=== PATIENT | male | born 1985 | race Two or more races ===

== ENCOUNTER 2017-05-24 13:13 | Observation (INO) | payer MEDICAID, OTHER ==
[~2017-05-24] VITALS: Ht 180.3 cm; Wt 73.7 kg
[2017-05-24 14:00] LABS: Urine Bilirubin Negative (Negative); Urine Blood Negative /uL (Negative); Urine Color Yellow (Yellow); Urine Glucose Normal (Normal); Urine Ketone Negative (Negative); Urine Mucus FEW (None Seen); Urine Nitrite Negative (Negative); Urine RBC <1 /hpf (0 - 3); Urine Urobilinogen Normal (Negative)
[2017-05-24 14:02] LABS: Basophils # (auto) 0 uL; Basophils % (auto) 0.8 % (0.0-2.0); Eosinophils # (auto) 0.2 uL; Eosinophils % (auto) 4.3 % (0.0-7.0); Hematocrit 45.7 % (41.0-53.0); Hemoglobin 15.6 g/dL (13.5-17.5); Lymphocytes # (auto) 2.1 uL; Lymphocytes % (auto) 36.2 % (10.0-50.0); Mean Corpuscular Hemoglobin 32.3 pg (28.0-32.0); Mean Corpuscular Hgb Conc. 34.2 g/dL (32.0-36.0); Mean Corpuscular Volume 94.5 fL (80.0-100.0); Mean Platelet Volume 8.5 fL (6.9-10.8); Monocytes # (auto) 0.7 uL; Neutrophils # (auto) 2.6 uL; Neutrophils % (auto) 45.7 % (37.0-80.0); Nucleated Red Blood Cells % 0.1 %; Platelet Count (auto) 205 10^3/uL (140-450); Red Cell Distribution Width 14.3 % (11.8-14.3); White Blood Cell 5.8 10^3/uL (4.4-10.8)
[2017-05-24 14:28] LABS: Albumin 4.1 g/dL (3.4-5.0); Alkaline Phosphatase 105 U/L (45-117); Anion Gap 7 (5-15); Aspartate Aminotransferase 18 U/L (15-37); BUN/Creatinine Ratio 21.8; Bilirubin, Total 0.4 mg/dL (0.2-1.0); Blood Urea Nitrogen 24 mg/dL (7-18); Calcium 8.6 mg/dL (8.5-10.1); Carbon Dioxide 29 mmol/L (21-32); Chloride 103 mmol/L (98-107); GFR African American 101 mL/min; GFR Non-African American 84 mL/min; Glucose 78 mg/dL (74-106); Potassium 4.2 mmol/L (3.5-5.1); Sodium 139 mmol/L (136-145); Total Protein 7.7 g/dL (6.4-8.2)
[2017-05-24] MEDS ORDERED: ASPirin 81 mg TAB PO ONE (15:00)
[2017-05-24] MEDS ORDERED: KETOROLAC TROMETH 30 MG/ML 1ML VIAL IV ONE (16:00)
[2017-05-24 16:02] LABS: INR 0.95 (0.9-1.15)
[2017-05-24 17:18] VITALS: BP 111/88
== END 2017-05-24 18:41 | disposition home or self-care (01) | DRG 203 ==
LOC: ER 13:18 → OVERFLOW 15:00 → ER 18:41
PROVIDERS: ADMIT Family Medicine; ATTEND Family Medicine
DX: R07.2 Precordial pain (principal)
CPT/HCPCS: 36415; 71010; 80053; 80307; 81001; 83735; 84443; 84484; 85025; 85379; 85610; 85730; 93005; 96374; 99285; G0378; J1885

== ENCOUNTER 2021-04-20 14:17 | Emergency (ER) | payer MEDICAID ==
[~2021-04-20] VITALS: Ht 180.3 cm; Wt 81.6 kg
[2021-04-20 15:54] VITALS: BP 128/85
== END 2021-04-20 16:49 | disposition home or self-care (01) ==
LOC: ER 14:17
DX: J20.9 Acute bronchitis, unspecified (principal)
CPT/HCPCS: 71046